=== PATIENT | female | born 1960 | race Caucasian/White ===

== ENCOUNTER 2024-11-20 08:27 | Day surgery (SDC) | payer OTHER ==
[2024-11-19 12:42] VITALS: BP 130/94
[~2024-11-20] VITALS: Ht 152.4 cm; Wt 63.5 kg
[~2024-11-20 08:27] MED LIST: LEVO-T50 MCG PO; NAPROXEN SODIU550 MG PO; PERCOCET 5-3251 EACH PO; TOPROL XL25 M1 PO; ZYRTEC10 M3 PO; [UNRECOGNIZED DRUG - OTHER] PO
[2024-11-20] MEDS ORDERED: CHLORHEXIDINE GLUCONATE 120 ML BOTTLE TOP ONE (13:03)
[2024-11-20] MEDS ORDERED: CEFAZOLIN SODIUM 1,000 MG VIAL ONE (13:03)
[2024-11-20] MEDS ORDERED: MORPHINE SULFATE 4 MG/ML VIAL IV ONE (16:00)
== END 2024-11-20 17:20 | disposition home or self-care (01) ==
LOC: CIR.AMB 08:27
PROVIDERS: ATTEND Surgery
DX: D24.1 Benign neoplasm of right breast (principal); D48.61 Neoplasm of uncertain behavior of right breast; N60.91 Unspecified benign mammary dysplasia of right breast; R92.1 Mammographic calcification found on diagnostic imaging of breast; Z91.02 Food additives allergy status; I10 Essential (primary) hypertension; E03.8 Other specified hypothyroidism; F41.9 Anxiety disorder, unspecified